=== PATIENT | male | born 1970 | race Caucasian/White ===

== ENCOUNTER 2020-12-17 09:51 | Outpatient (CLI) | payer BC ==
--- NOTE | 2020-12-17 10:42 | ULT ---
EXAM: US Renal Bilateral STANDARD PROVIDED CLINICAL HISTORY: Chronic kidney disease COMPARISON: None FINDINGS: Right kidney measures approximately 12.6 x 4.8 x 5.4 cm and demonstrates no evidence for hydronephros is, sonographically apparent calculus or mass. An extrarenal pelvis is demonstrated. Left kidney measures approximately 13.4 x 6.8 x 6 cm and demonstrates no evidence for hydronephrosis, sonographically apparent calculus or mass. Urinary bladder appears sonographically unremarkable. IMPRESSION: No evidence for hydronephrosis.
== END 2020-12-17 09:52 | disposition home or self-care (01) ==
LOC: BICULT 09:51
PROVIDERS: ATTEND Internal Medicine Nephrology
DX: N18.30 Chronic kidney disease, stage 3 unspecified (principal)
CPT/HCPCS: 76770

== ENCOUNTER 2021-04-16 14:26 | Outpatient (CLI) | payer BC ==
[~2021-04-16 14:26] MED LIST: Iopamidol-370 76% 500 ML 1 ML ONE
== END 2021-04-16 14:27 | disposition home or self-care (01) ==
LOC: BICCT 14:26
PROVIDERS: ATTEND Internal Medicine Nephrology
DX: E26.9 Hyperaldosteronism, unspecified (principal); N18.30 Chronic kidney disease, stage 3 unspecified; E27.9 Disorder of adrenal gland, unspecified
CPT/HCPCS: 74170; Q9967